=== PATIENT | female | born 1990 | race American Indian/Alaskan Native ===

== ENCOUNTER 2017-01-15 07:38 | Emergency (ER) | payer MEDICAID ==
[2017-01-15] MEDS ORDERED: NACL 0.9% 1000 ML 1,000 ML IV ONE (09:15)
[2017-01-15] MEDS ORDERED: ZOSYN/NS 4.5GM/100ML 4.5 GM/100 ML VIAL IV ONE (09:15)
[2017-01-15] MEDS ORDERED: MORPHINE IV ONE ×2 (09:16→10:43)
[2017-01-15] MEDS ORDERED: ZOFRAN IV ONE (09:16)
[2017-01-15] MEDS ORDERED: NACL ONE ×2 (09:42→10:01)
[2017-01-15 09:48] LABS: Basophils % (Auto) 0.2 % (0.0-1.8); Eosinophils % (Auto) 0.7 % (0.0-4.3); Hematocrit 36.1 % (30.3-42.9); Hemoglobin 12.3 gm/dl (10.1-14.3); Mean Corpuscular HGB Conc 34 % (30-34); Mean Corpuscular Hemoglobin 30 pg (28-32); Mean Corpuscular Volume 88 fl (79-97); Platelet Count 190 K/mm3 (140-440); Red Blood Count 4.11 M/mm3 (3.65-5.03); Red Cell Distribution Width 13.4 % (13.2-15.2); White Blood Count 6.4 K/mm3 (4.5-11.0)
[2017-01-15 10:04] LABS: Alanine Aminotransferase 161 units/L (7-56); Albumin 3.9 g/dL (3.9-5); Alkaline Phosphatase 80 units/L (35-129); Anion Gap 17 mmol/L; BUN/Creatinine Ratio 17.14; Bilirubin,Direct 0.5 mg/dL (0-0.2); Bilirubin,Indirect 0.4 mg/dL; Blood Urea Nitrogen 12 mg/dL (7-17); Calcium 8.4 mg/dL (8.4-10.2); Carbon Dioxide 21 mmol/L (22-30); Chloride 106.2 mmol/L (98-107); Glucose 105 mg/dL (65-100); Lipase 23 units/L (13-60); Potassium 3.9 mmol/L (3.6-5.0); Sodium 140 mmol/L (137-145)
--- NOTE | 2017-01-15 10:15 | Emergency Department Report ---
ED General Adult HPI - General Chief complaint: Abdominal Pain Stated complaint: ABD PAIN Time Seen by Provider: 01/15/17 09:10 Source: patient Mode of arrival: Ambulatory Limitations: No Limitations - History of Present Illness Initial comments: Patient complains of periumbilical abdominal pain which began about 2 hours prior to arrival. She is status post an umbilical hernia repair which she states intermittently drains. She states that she had emergency surgery at the time of the repair approximately 4 years ago. She has not followed up with the surgeon who lives in [place] for some time. She states she was recently placed on an antibiotic by a primary care physician. She has finished. She states that the area that had been training has "closed up". She feels like she has recurrent symptoms of an umbilical hernia. She has not been vomiting. She does not report fever or chills. -: Gradual, hour(s) Location: abdomen Radiation: non-radiation Severity scale (0 -10): 6 Quality: aching Consistency: constant Improves with: none Worsens with: none Associated Symptoms: denies other symptoms - Related Data Previous Rx's Medication Instructions Recorded Last Taken Type HYDROcodone/APAP 5-325 [[place] 1 each PO Q4HR PRN #14 tablet 01/15/17 Unknown Rx 5/325] Levofloxacin [Levaquin] 750 mg PO QDAY #10 tablet 01/15/17 Unknown Rx Allergies Allergy/AdvReac Type Severity Reaction Status Date / Time ibuprofen [From Motrin] AdvReac Nausea Verified 01/15/17 07:50 tramadol AdvReac Unknown Verified 01/15/17 07:50 ED Review of Systems ROS: Stated complaint: ABD PAIN Other details as noted in HPI Constitutional: denies: chills, fever Eyes: denies: eye pain, eye discharge, vision change ENT: denies: ear pain, throat pain Respiratory: denies: cough, shortness of breath, wheezing Cardiovascular: denies: chest pain, palpitations Endocrine: no symptoms reported Gastrointestinal: abdominal pain. denies: nausea, diarrhea Genitourinary: denies: urgency, dysuria, discharge Musculoskeletal: denies: back pain, joint swelling, arthralgia Skin: denies: rash, lesions Neurological: denies: headache, weakness, paresthesias Psychiatric: denies: anxiety, depression Hematological/Lymphatic: denies: easy bleeding, easy bruising ED Past Medical Hx - Past Medical History Previous Medical History?: No - Surgical History Past Surgical History?: Yes Additional Surgical History: hernia repair, 5 c-sections - Social History Smoking Status: Never Smoker Substance Use Type: None, Marijuana - Medications Home Medications: Home Medications Medication Instructions Recorded Confirmed Last Taken Type HYDROcodone/APAP 5-325 [[place] 1 each PO Q4HR PRN #14 tablet 01/15/17 Unknown Rx 5/325] Levofloxacin [Levaquin] 750 mg PO QDAY #10 tablet 01/15/17 Unknown Rx ED Physical Exam - General Limitations: No Limitations General appearance: alert, in no apparent distress - Head Head exam: Present: atraumatic, normocephalic - Eye Eye exam: Present: normal appearance. Absent: scleral icterus - ENT ENT exam: Present: normal exam, mucous membranes moist - Neck Neck exam: Present: normal inspection. Absent: tenderness, meningismus - Respiratory Respiratory exam: Present: normal lung sounds bilaterally. Absent: respiratory distress - Cardiovascular Cardiovascular Exam: Present: regular rate, normal rhythm. Absent: systolic murmur, diastolic murmur, rubs, gallop - GI/Abdominal GI/Abdominal exam: Present: soft, tenderness (there is a mildly tender palpable periumbilical mass which is irreducible), normal bowel sounds, hernia (likely periumbilical hernia.). Absent: distended, guarding, rebound, rigid - Extremities Exam Extremities exam: Present: normal inspection - Back Exam Back exam: Present: normal inspection - Neurological Exam Neurological exam: Present: alert, oriented X3, CN II-XII intact. Absent: motor sensory deficit - Psychiatric Psychiatric exam: Present: normal affect, normal mood - Skin Skin exam: Present: warm, dry, intact, normal color. Absent: rash ED Course Vital Signs 01/15/17 01/15/17 01/15/17 07:45 10:06 12:11 Temperature 98.9 F 98.1 F Pulse Rate 109 H 74 52 L Respiratory 20 16 16 Rate Blood Pressure 131/87 Blood Pressure 105/74 103/67 [Left] O2 Sat by Pulse 100 99 99 Oximetry - Reevaluation(s) Reevaluation #1: Patient was given empiric antibiotics. She was given fluids and analgesia. Her CT showed what I believe is consistent with recurrent periumbilical hernia. I spoke to Dr. Mathis. He states he will be here in 5 minutes. 01/15/17 12:10 Reevaluation #2: The patient was seen by Dr. Mathis. He recommends an abdominal binder and Levaquin for 10 days. He will see her in the office for follow-up. 01/15/17 12:39 ED Medical Decision Making - Lab Data Result diagrams: 01/15/17 09:32 01/15/17 09:32 Laboratory Results - last 24 hr 01/15/17 01/15/17 01/15/17 09:32 09:32 09:32 WBC 6.4 RBC 4.11 Hgb 12.3 Hct 36.1 MCV 88 MCH 30 MCHC 34 RDW 13.4 Plt Count 190 Lymph % (Auto) 7.7 L Casey % (Auto) 7.0 Eos % (Auto) 0.7 Baso % (Auto) 0.2 Lymph # 0.5 L Casey # 0.4 Eos # 0.0 Baso # 0.0 Seg Neutrophils % 84.4 H Seg Neutrophils # 5.4 Sodium 140 Potassium 3.9 Chloride 106.2 Carbon Dioxide 21 L Anion Gap 17 BUN 12 Creatinine 0.7 Estimated GFR > 60 BUN/Creatinine Ratio 17.14 Glucose 105 H Calcium 8.4 Total Bilirubin 0.90 Direct Bilirubin 0.5 H Indirect Bilirubin 0.4 AST 491 H ALT 161 H Alkaline Phosphatase 80 Albumin 3.9 Lipase 23 HCG, Quant < 2 Critical care attestation.: If time is entered above; I have spent that time in minutes in the direct care of this critically ill patient, excluding procedure time. ED Disposition Clinical Impression: Umbilical hernia Qualifiers: Obstruction and gangrene presence: without obstruction or gangrene Qualified Code(s): K42.9 - Umbilical hernia without obstruction or gangrene Disposition: DC-01 TO HOME OR SELFCARE Is pt being admited?: No Does the pt Need Aspirin: No Condition: Stable Instructions: Abdominal Pain (ED), Umbilical Hernia (ED) Additional Instructions: Return to the emergency department any increased pain vomiting or fever. Otherwise Rx as directed and follow-up with Dr. Mathis. Prescriptions: HYDROcodone/APAP 5-325 [[place] 5/325] 1 each PO Q4HR PRN #14 tablet PRN Reason: Pain Levofloxacin [Levaquin] 750 mg PO QDAY #10 tablet Referrals: CLARISSA BONILLA MD [Primary Care Provider] - 3-5 Days Time of Disposition: 12:40
[2017-01-15 10:25] LABS: INR 1.13 (0.87-1.13)
[2017-01-15 10:34] LABS: Bacteria,Urine 1+ /HPF (Negative); Bilirubin,Urine NEG (Negative); Blood,Urine LG (Negative); Ketones,Urine NEG (Negative); Leukocyte Esterase,Urine SM (Negative); Mucus,Urine 2+ /HPF; Nitrite,Urine NEG (Negative)
[2017-01-15 10:35] LABS: RBC,Urine > 182.0 /HPF (0.0-6.0)
[2017-01-15] MEDS ORDERED: BENADRYL ONE (10:38)
[2017-01-15] MEDS ORDERED: BENADRYL IV ONE (10:43)
--- NOTE | 2017-01-15 11:01 | Cat Scan Report ---
CT SCAN OF THE ABDOMEN AND PELVIS WITH CONTRAST: HISTORY: Abdominal pain. TECHNIQUE: Helical CT in 1.25mm intervals following IV contrast. Sagittal and coronal reconstructions. FINDINGS: There is a moderate sized area of induration or edema in the supraumbilical region measuring up to 5 cm. This may represent a small supraumbilical hernia, please correlate with the patient and history. No bowel loops are incorporated. The liver is normal in size and is without focal defect. There is no evidence for calcified gallstones or biliary dilatation. Mild periportal edema is suspected. The common bile duct is normal caliber. The spleen and pancreas demonstrate a normal size and attenuation with no evidence of abnormal mass. The kidneys are normal in size and position with no evidence of hydronephrosis or mass. The adrenal glands are normal. There is no intestinal obstruction or ascites. Normal appendix. The abdominal aorta is normal. The uterus and adnexa are unremarkable. Bilateral tubal ligation clips are identified. There is no evidence of peritoneal air or fluid. There is no evidence of any abnormal masses or fluid collections within the pelvis. No adenopathy is identified. The bladder is normal. IMPRESSION: Umbilical hernia. No evidence for bowel obstruction or incorporation of bowel loops. Mild gallbladder wall edema/periportal edema. No cholelithiasis. No acute inflammatory process is appreciated.
[2017-01-15 11:26] LABS: Albumin/Globulin Ratio 1.3 %; Total Protein 6.8 g/dL (6.3-8.2)
[2017-01-15] MEDS ORDERED: NORCO 5/325 PO ONE (13:12)
[2017-01-15] MEDS ORDERED: DILAUDID ONE (13:13)
[2017-01-15 18:22] VITALS: BP 100/67
== END 2017-01-15 13:30 | disposition home or self-care (01) ==
LOC: ED 07:38
DX: K42.9 Umbilical hernia without obstruction or gangrene (principal); F12.10 Cannabis abuse, uncomplicated
CPT/HCPCS: 36415; 74177; 80048; 80074; 81001; 81025; 83690; 84702; 85025; 85610; 96365; 96375; 96376; 99284; J1170; J1200; J2270; J2405; J2543; J7030; Q9967

== ENCOUNTER 2017-02-01 09:24 | Day surgery (SDC) | payer MEDICAID ==
[2017-02-01] MEDS ORDERED: XYLOCAINE MPF 2% ONE (11:04)
[2017-02-01] MEDS ORDERED: SUBLIMAZE ONE (11:04)
[2017-02-01] MEDS ORDERED: ZEMURON IV ONE (11:04)
[2017-02-01] MEDS ORDERED: DIPRIVAN 10 MG/ML IV ONE (11:05)
--- NOTE | 2017-02-01 11:07 | Anesthesia Consultation ---
Anesthesia Consult and Med Hx Date of service: 02/01/17 - Airway Anesthetic Teeth Evaluation: Good ROM Head & Neck: Adequate Mental/Hyoid Distance: Adequate Mallampati Class: Class I Intubation Access Assessment: Good - Pulmonary Exam CTA: Yes - Cardiac Exam Cardiac Exam: RRR - Pre-Operative Health Status ASA Pre-Surgery Classification: ASA2 Proposed Anesthetic Plan: General - Pulmonary Hx Smoking: No Hx Sleep Apnea: No - Cardiovascular System Hx Heart Murmur: Yes (not present today) - Hematic Hx Anemia: Yes (IN THE PAST) - Other Systems Hx Alcohol Use: Yes (BEER 1 PD) Hx Substance Use: Yes (MARIJUANA- DAILY USE) Hx Cancer: No
--- NOTE | 2017-02-01 11:08 | Anesthesia Day of Surgery ---
Anesthesia Day of Surgery - Day of Surgery Patient Examined: Yes Patient H&P Reviewed: Yes Patient is NPO: Yes
[2017-02-01] MEDS ORDERED: NACL BACTERIOSTATIC INFILTRATI ONE (11:21)
[2017-02-01] MEDS ORDERED: LACTATED RINGERS 1,000 ML IV SCH (12:00)
[2017-02-01] MEDS ORDERED: PEPCID IV NR (12:00)
[2017-02-01] MEDS ORDERED: ZOFRAN IV NR (12:00)
[2017-02-01] MEDS ORDERED: ANCEF/STERILE WATER 2 GM/20 ML IV NR (12:00)
[2017-02-01] MEDS ORDERED: DECADRON 12 MG in NACL 0.9% 50 ML IV NR (12:00)
[2017-02-01] MEDS ORDERED: VERSED IV NR (12:00)
[2017-02-01] MEDS ORDERED: NACL 0.9% IR ONE (12:56)
[2017-02-01] MEDS ORDERED: XYLOCAINE 1% 20 mL INFILTRATI ONE (12:56)
[2017-02-01] MEDS ORDERED: MARCAINE 0.5% INFILTRATI ONE (12:56)
[2017-02-01] MEDS ORDERED: DECADRON ONE (13:04)
[2017-02-01] MEDS ORDERED: DILAUDID ONE ×2 (13:04→13:36)
[2017-02-01] MEDS ORDERED: NEOSTIGMINE ONE (13:21)
[2017-02-01] MEDS ORDERED: ROBINUL ONE (13:21)
[2017-02-01] MEDS ORDERED: NORCO 5/325 PO PRN (13:21)
--- NOTE | 2017-02-01 13:21 | Discharge Summary ---
Short Stay Discharge Plan Diet: regular Wound: per your surgeon's advice Special Instructions: no heavy lifting Follow up with: CLARISSA BONILLA MD [Primary Care Provider] - 7 Days
[2017-02-01] MEDS: DILAUDID IV PRN ×2 (13:30→14:00)
--- NOTE | 2017-02-01 13:40 | Post Anesthesia Evaluation ---
- Post Anesthesia Evaluation Patient Participated: Yes Airway Patent: Yes Stable Respiratory Function: Yes Temp > 96.8F: Yes Pain Manageable: Yes Adequeate Hydration: Yes Anesthesia Complications: No Block Receding Appropriately: Not Applicable
[2017-02-01] MEDS ORDERED: BENADRYL ONE (14:11)
[2017-02-01] MEDS ORDERED: BENADRYL IV ONE (14:12)
[2017-02-01] MEDS ORDERED: DILAUDID IV SCH (15:45)
[2017-02-01 20:04] VITALS: BP 91/66
--- NOTE | 2017-02-20 15:44 | Operative Report ---
DESCRIPTION OF PROCEDURE: This patient was seen in my office because of pain to the umbilical area. She notes that she has a small bulge at the umbilical aspect with severe tenderness and redness. She told me that she has some ooze coming out of them, so they gave her admission and she underwent exploration of the umbilical area. ANESTHESIA: General. BLOOD LOSS: Minimal. FINDINGS: The patient had a very small umbilical defect as barely about 1 x 1 cm. We had the needle that we had to take it out by extending our incision. PROCEDURE: The patient in supine position, was prepped and draped in usual fashion. I made the infraumbilical incision deep subcutaneous tissue all the way down to the fascia. To the fascia, I could see minimal inflammatory signs there, so after having all the adhesions freed from the fascia, I put interrupted stitches of #1 Vicryl. The needle went into the abdominal cavity. I had to clean it by extend my incision a little bit more towards the lateral aspect, we were able to find it and it was taken out. We used the C-arm for that purpose. Postop, she did well, kept her one day extra and then she was discharged home to be seen in my office in 1 week. FINAL DIAGNOSES: As above. JOB# [id number] HATTIE/MCKAYLA
== END 2017-02-01 18:34 | disposition home or self-care (01) ==
LOC: OR 09:24
PROVIDERS: ATTEND Surgery
DX: K42.9 Umbilical hernia without obstruction or gangrene (principal); F12.90 Cannabis use, unspecified, uncomplicated; D64.9 Anemia, unspecified; Z72.89 Other problems related to lifestyle; Z88.8 Allergy status to other drugs, medicaments and biological substances; Z88.6 Allergy status to analgesic agent
CPT/HCPCS: 49585; 81025; 88302; J0690; J1100; J1170; J1200; J2250; J2405; J2704; J2710; J3010; J7120

== ENCOUNTER 2017-04-28 02:08 | Emergency (ER) | payer MEDICAID ==
[2017-04-28 02:24] VITALS: BP 104/77
[2017-04-28 03:10] LABS: Basophils % (Auto) 1.1 % (0.0-1.8); Hematocrit 36.1 % (30.3-42.9); Hemoglobin 12.4 gm/dl (10.1-14.3); Mean Corpuscular HGB Conc 34 % (30-34); Mean Corpuscular Hemoglobin 30 pg (28-32); Mean Corpuscular Volume 89 fl (79-97); Platelet Count 239 K/mm3 (140-440); Red Blood Count 4.08 M/mm3 (3.65-5.03); Red Cell Distribution Width 13.5 % (13.2-15.2); White Blood Count 4.9 K/mm3 (4.5-11.0)
[2017-04-28 03:27] LABS: Anion Gap 17 mmol/L; BUN/Creatinine Ratio 22; Blood Urea Nitrogen 13 mg/dL (7-17); Calcium 8.6 mg/dL (8.4-10.2); Carbon Dioxide 23 mmol/L (22-30); Glucose 87 mg/dL (65-100); Potassium 4.2 mmol/L (3.6-5.0); Sodium 139 mmol/L (137-145)
[2017-04-28 04:23] LABS: Bilirubin,Urine NEG (Negative); Blood,Urine MOD (Negative); Ketones,Urine NEG (Negative); Leukocyte Esterase,Urine NEG (Negative); Mucus,Urine 1+ /HPF; Nitrite,Urine NEG (Negative); Protein,Urine <15 mg/dL mg/dL (Negative); RBC,Urine < 1.0 /HPF (0.0-6.0)
--- NOTE | 2017-04-28 08:26 | XRay Report ---
CHEST 2 VIEWS INDICATION: Cough, fever. Status post abdominal hernia repair 2 months ago. COMPARISON: None similar. FINDINGS: PA and lateral chest radiographs demonstrate normal cardiomediastinal silhouette. Clear lungs. Intact bones. CONCLUSION: No acute disease in the chest. Thank you for the opportunity to participate in this patient's care.
== END 2017-04-28 03:44 | disposition left against medical advice (07) ==
LOC: ED 02:08
DX: Z53.21 Procedure and treatment not carried out due to patient leaving prior to being seen by health care provider (principal)
CPT/HCPCS: 36415; 71020; 80048; 81001; 84703; 85025